=== PATIENT | female | born 1935 | race Caucasian/White ===

== ENCOUNTER → 2018-01-19 | Day surgery (SDC) | payer MEDICARE, OTHER ==
[~2018-01-19] MED LIST: AMLODIPINE BESY10 MG PO; ASPIRIN81 M2 PO; BUMETANIDE2 M1 PO; BYSTOLIC10 MG PO; CLOPIDOGREL75 MG PO; COREG25 MG PO; COZAAR100 MG PO; FENOFIBRATE160 MG PO; FISH OIL 1,001000 M1 PO; FLEXERIL PO; GLUCOPHAGE1000 MG PO; IMDUR 60 MG TAB60 M1 PO; K-DUR10 MEQ PO; LANTUS SUBQ; LASIX 20 MG TAB20 MG PO; LISINOPRIL40 MG PO; LOVASTAT40 PO; MULTIPLE VITAM1 EAC2 PO; PLAVIX 75 MG TA75 M1 PO; PROZAC 10 MG CA10 MG PO
[2018-01-19 08:31] LABS: ABSOLUTE BASOPHILS 0.1 thou/uL (0.0-0.2); ABSOLUTE EOSINOPHILS 0.3 thou/uL (0.0-0.7); ABSOLUTE LYMPHOCYTES 2.4 thou/uL (0.8-5.3); ABSOLUTE MONOCYTES 0.7 thou/uL (0.0-1.2); ABSOLUTE NEUTROPHILS 5.1 thou/uL (1.6-8.1); BASOPHILS 1.4 %; EOSINOPHILS 3.9 %; HEMATOCRIT 37.3 % (37.0-47.0); HEMOGLOBIN 12.7 gm/dL (12.0-15.0); LYMPHOCYTES 27.4 %; MCH 32.1 pg (26.0-34.0); MCHC 34.1 g/dL (28.0-37.0); MCV 94.2 fL (80.0-100.0); MONOCYTES 8.3 %; MPV 8.4 fl. (7.2-11.1); NUCLEATED RBCS 0 /100WBC; PLATELET COUNT* 165 thou/uL (150-400); RBC 3.95 mil/uL (4.20-5.00); RDW-CV 13.9 % (10.5-14.5); WBC 8.7 thou/uL (4.0-11.0)
[2018-01-19 08:53] LABS: CALCIUM 8.7 mg/dL (8.5-10.1); CREATININE 2.8 mg/dL (0.6-1.3); POTASSIUM 3.6 mmol/L (3.5-5.1)
--- NOTE | 2018-01-19 13:09 | EKG ---
[place] [address] ELECTROCARDIOGRAM REPORT Name: CATE LOZANO Room: [facility]#: [id number] Admission: 01/19/18 Attend Phys: Bladimir Kaplan Discharge: Date of : 35 Report #: [id number] THIS REPORT FOR: //name// [facility] Test Date: 2018-01-19 Test Time: 08:35:27 Pat Name: CATE LOZANO Department: Room: Gender: F City Route Driver: : 1935 Requested By: Brooks Parker Order Number: [id number] Cornelio MD: Arthur Pillai Measurements Intervals [place] Rate: 60 P: 4 W[place]: 171 QRS: -5 QRSD: 119 T: 77 QT: 496 QTc: 496 Interpretive Statements Atrial-ventricular dual-paced rhythm No further analysis attempted due to paced rhythm Compared to ECG 07/16/2012 12:16:25 Sinus bradycardia no longer present Myocardial infarct finding no longer present Electronically Signed On 01-19-2018 13:09:05 CDT by Arthur Pillai [email or web address] <ELECTRONICALLY SIGNED> By: Arthur Pillai MD, [facility] 01/19/18 1309 0835 [id number] Arthur Pillai MD, [facility] /EPI
[2018-01-19 13:54] VITALS: BP 170/56
--- NOTE | 2018-01-21 15:17 | OP ---
[facility] [address] [place] [address] OPERATIVE REPORT Name: CATE LOZANO Room: [facility]#: [id number] Admission: 01/19/18 Attend Phys: Bladimir Kaplan Discharge: Date of : 35 Report #: [id number] THIS REPORT FOR: //name// CC: Caleb Parker DATE OF SERVICE: 01/19/2018 PREOPERATIVE DIAGNOSES: Bleeding after hemodialysis, end-stage renal disease. POSTOPERATIVE DIAGNOSES: Bleeding after hemodialysis, end-stage renal disease. SURGEON: Brooks Parker D.O. CYBER SECURITY ENGINEER: None. PROCEDURE: 1. Ultrasound-guided access, right AV fistula. 2. Fistulogram both central and peripheral. 3. Angioplasty of the innominate and subclavian vein with Bard Verden 10 x 40 angioplasty balloon. 4. Angioplasty and stent of cephalic vein outflow with Bard Verden 10 x 40 and angioplasty balloon and 8 x 40 LifeStent. ESTIMATED BLOOD LOSS: Minimal. SPECIMEN: None. COMPLICATIONS: None. CONDITION: Stable. DISPOSITION: Home. INDICATIONS FOR THE PROCEDURE AND CONSENT: The patient is an 82-year-old female with end-stage renal disease, requiring hemodialysis. 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 Recommendation for fistulogram was made. Risks and benefits were discussed, infection, bleeding, need for additional procedures including followup fistulogram performed. The patient wished to proceed, was consented and scheduled. PROCEDURE IN DETAIL: After timeout was performed, the patient was placed in supine position with circumferential sterile prep and drape of the right upper extremity. Ultrasound was utilized to interrogate the fistula and no previous [facility] [address] [place] [address] OPERATIVE REPORT Name: CATE LOZANO Room: [facility]#: [id number] Admission: 01/19/18 Attend Phys: Bladimir Kaplan Discharge: Date of : 35 Report #: [id number] stents or interventions were identified. No obvious flow limitation or stenosis was seen within the main portion of the fistula or approximately at the anastomosis. I therefore then accessed the proximal AV fistula using Seldinger technique and a 5-Czech micropuncture sheath under ultrasound guidance. Please see saved image. I then performed an outflow fistulogram which demonstrated tandem stenoses. There was a significant area of stenosis in the mid cephalic vein above areas of previous access. This appeared to be partially related to the valve and a collateral. Then distally the subclavian vein appeared to have either a large collateral to bifurcate and then reconstituted. 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 At this point, the 5-Czech sheath was exchanged for a 6-Czech sheath and Glidewire was advanced over the stenosis. Serial tandem inflations were performed using various with a 10 x 4 Verden balloon. Repeat fistulogram demonstrated recurrent severe stenosis in the area of the valve and collateral within the mid cephalic vein. This appeared to have some irregularity to it and I was suspicious that this would laterally restenosis, but possibly thrombosed in the near future and therefore opted to stent this area with the LifeStent. This was then performed under fluoroscopic guidance and did not require post-dilatation. I then performed a retrograde fistulogram of the inflow anastomosis, which appeared to be widely patent as did the visualized portions of the brachial artery. We then removed the sheath and wire and pressure was held for hemostasis. The patient tolerated the procedure well and was noted to have an excellent thrill. Upon completion of the case, was transferred to recovery in stable condition. <ELECTRONICALLY SIGNED> By: Brooks Parker DO 01/21/18 1517 [id number] Parker DO /nt
== END | disposition home or self-care (01) ==
LOC: M.SUR 08:00
PROVIDERS: Surgery
DX: T82.838A Hemorrhage due to vascular prosthetic devices, implants and grafts, initial encounter (principal); N18.6 End stage renal disease; Z99.2 Dependence on renal dialysis; Z91.041 Radiographic dye allergy status; Z79.899 Other long term (current) drug therapy; Y83.8 Other surgical procedures as the cause of abnormal reaction of the patient, or of later complication, without mention of misadventure at the time of the procedure